=== PATIENT | female | born 1995 | race Caucasian/White ===

== ENCOUNTER 2024-02-18 14:43 | Emergency (ER) | payer MEDICAID ==
[~2024-02-18] VITALS: Ht 162.6 cm; Wt 64.0 kg
[2024-02-18 14:46] VITALS: BP 122/72; PULSE 87; RESP 16; TEMP 98.1; O2SAT 98
== END 2024-02-18 17:17 | disposition home or self-care (01) ==
LOC: ER 14:43
DX: F10.129 Alcohol abuse with intoxication, unspecified (principal); F19.90 Other psychoactive substance use, unspecified, uncomplicated; Y90.9 Presence of alcohol in blood, level not specified
CPT/HCPCS: 99283